=== PATIENT | female | born 1935 | race Caucasian/White ===

== ENCOUNTER 2022-03-06 15:45 | Emergency (ER) | payer MEDICARE ==
[~2022-03-06] VITALS: Ht 170.2 cm; Wt 70.8 kg
--- NOTE | 2022-03-06 15:52 | NUR ---
DR. DEEJAY SAPP
[2022-03-06] MEDS ORDERED: IV NS 0.9% 1,000 ML BAG IV ONE ×2 (16:00)
--- NOTE | 2022-03-06 16:00 | NUR ---
SON AT THE BEDSIDE, VSS STABLE, ON RA, PT C/O ON BEING COLD ,WARN BLANKET APPLIED CONTINUE TO MONITOR
[2022-03-06 16:50] LABS: BASOPHILS % (AUTO) 0.7 % (0.0-2.0); HEMATOCRIT 33 % (33-45); LYMPHOCYTES % (AUTO) 35.1 % (20.0-44.0); MEAN CORPUSCULAR HGB CONC 33 g/dl (31.0-36.0); MEAN CORPUSCULAR VOLUME 92 fL (82-100); MONOCYTES # (AUTO) 0.4 K/uL (0.1-1.30); MONOCYTES % (AUTO) 7.3 % (2.0-12.0); NEUTROPHILS # (AUTO) 3.1 K/uL (1.8-8.9); NEUTROPHILS % (AUTO) 55.9 % (43.0-81.0); PLATELET COUNT (AUTO) 245 K/uL (150-450); RED BLOOD CELL COUNT(AUTO) 3.63 MIL/uL (4.0-5.2); WHITE BLOOD COUNT (AUTO) 5.6 K/uL (4.3-11.0)
--- NOTE | 2022-03-06 17:00 | NUR ---
COVID AND INFLUENZA SWAB SENT TO LAB
[2022-03-06] MEDS ORDERED: BISA10SU12 RC (17:15)
[2022-03-06] MEDS ORDERED: OMEG1CAP PO (17:15)
[2022-03-06] MEDS ORDERED: ERGO500093 PO (17:15)
[2022-03-06] MEDS ORDERED: LENA10CA PO (17:15)
[2022-03-06] MEDS ORDERED: MULT-24 PO (17:15)
[2022-03-06] MEDS ORDERED: CLOP75TA15 PO (17:15)
[2022-03-06] MEDS ORDERED: LORA10TA7 PO (17:15)
[2022-03-06] MEDS ORDERED: ROSU5TAB13 PO (17:15)
[2022-03-06] MEDS ORDERED: SERT50TA12 PO (17:15)
[2022-03-06] MEDS ORDERED: SENN-261 PO (17:15)
--- NOTE | 2022-03-06 17:54 | NUR ---
PT STATED WANT TO GO HOME AMA, DR GARDINER AT THE BEDSIDE SPOKEN TO PATIENT AND TWO SONS EXTENSIVILY REGRAING PLAN OF CARE AND RISK OF TAKING THE PT HOME AMA. PT AND HER TWO SONS , STILL REQUESTING TO LEAVE AMA .
--- NOTE | 2022-03-06 18:20 | NUR ---
Patient does not wish to proceed with medical care recommended by Dr. GARDINER . Patient given information related to possible complications, up to and including , which could occur as a result of leaving the hospital at this time. Patient verbalizes understanding of risks involved due to leaving against medical advice. Patient has signed AMA form. AND LEFT THE ER HOME WITH TWO SONS
[2022-03-06 18:22] VITALS: BP 134/72
[2022-03-06 20:41] LABS: CARBON DIOXIDE 22 mmol/L (21-32); CHLORIDE 103 mmol/L (98-107); GLUCOSE 104 mg/dL (74-106); POTASSIUM 3.8 mmol/L (3.5-5.1); SODIUM SERUM 140 mmol/L (136-145)
[2022-03-06 20:42] LABS: BILIRUBIN,DIRECT 0.1 mg/dL (0.0-0.2); BILIRUBIN,TOTAL 0.3 mg/dL (0.2-1.0); CALCIUM, SERUM 8.5 mg/dL (8.5-10.1); CREATININE 0.8 mg/dL (0.6-1.3); UREA NITROGEN, BLOOD 12 mg/dL (7-18)
[2022-03-06 20:43] LABS: ALBUMIN 3.4 g/dL (3.4-5.0); ALKALINE PHOSPHATASE 40 U/L (46-116); ASPARTATE AMINOTRANSFERASE 22 U/L (15-37)
[2022-03-06 20:44] LABS: TOTAL PROTEIN, SERUM 6.8 g/dL (6.4-8.2)
[2022-03-06 20:45] LABS: ALANINE AMINOTRANSFERASE 16 U/L (12-78)
== END 2022-03-06 18:25 | disposition left against medical advice (07) ==
LOC: ER 16:20
DX: R55 Syncope and collapse (principal); R51.9 Headache, unspecified; Z20.822 Contact with and (suspected) exposure to COVID-19; C90.00 Multiple myeloma not having achieved remission; Z79.02 Long term (current) use of antithrombotics/antiplatelets; Z79.899 Other long term (current) drug therapy; E86.0 Dehydration; D64.9 Anemia, unspecified; R94.31 Abnormal electrocardiogram [ECG] [EKG]; Z53.29 Procedure and treatment not carried out because of patient's decision for other reasons
CPT/HCPCS: 36415; 70450-TC; 71045-TC; 80048-TC; 80076-TC; 83605-TC; 84484-TC; 85025-TC; C9803; J7030